=== PATIENT | female | born 1955 | race Caucasian/White ===

== ENCOUNTER 2023-02-10 12:10 | Day surgery (SDC) | payer MEDICARE, SELFPAY ==
--- NOTE | 2023-02-10 12:21 | US_ITS ---
[address] [address] Patient Name: RONIT PARKS MRN: [id number] date: 1955 Sex: F Assigned Patient Location: US Current Patient Location: US Accession/Order Number: [id number] Exam Date: 02/10/2023 12:30 Report Date: 02/10/2023 13:38 At the request of: LAURA VIDALES Procedure: US biopsy thyroid EXAMINATION: US biopsy thyroid HISTORY: Thyroid Nodule COMPARISON: Ultrasound thyroid 07/12/2022 TECHNIQUE: After obtaining informed consent, ultrasound-guided fine needle aspiration was performed in the usual sterile manner. FINDINGS: IMAGING: Ultrasound. BIOPSY NEEDLE: 25-gauge; 3 separate passes LOCATION: Left lobe 1.2 x 1.0 x 0.7 cm hypoechoic heterogeneous nodule. SPECIMEN TYPE: Cellular tissue. LOCAL ANESTHETIC: Buffered Xylocaine. COMPLICATIONS: None. LABORATORY: Prepared slide smears and washings for cell block evaluation. OTHER: Negative. PATHOLOGY: Pending. An addendum will be added when results are available. US/US biopsy thyroid IMPRESSION: 1. Uneventful ultrasound guided fine needle aspiration (FNA). 2. Pathology results are pending. Electronically authenticated by: LORIE OSORIO Date: 02/10/2023 13:38
[2023-02-10 12:30] VITALS: BP 129/69; PULSE 81; O2SAT 100
== END 2023-02-10 13:38 | disposition home or self-care (01) ==
LOC: US 12:13
PROVIDERS: Radiology Diagnostic Radiology; Visit Provider Otolaryngology
DX: E04.1 Nontoxic single thyroid nodule (principal)
CPT/HCPCS: 10005; 88173

== ENCOUNTER 2023-06-23 16:13 | Outpatient (OUT) | payer MEDICARE, SELFPAY ==
--- NOTE | 2023-06-23 16:19 | US_ITS ---
[address] [address] Patient Name: RONIT PARKS MRN: [id number] date: 1955 Sex: F Assigned Patient Location: US Current Patient Location: Accession/Order Number: [id number] Exam Date: 06/23/2023 16:20 Report Date: 06/27/2023 11:03 At the request of: LAURA VIDALES Procedure: US thyroid EXAMINATION: US thyroid HISTORY: Thyroid nodule, E04.1 COMPARISON: Ultrasound thyroid 07/12/2022, ultrasound biopsy thyroid 02/10/2023 FINDINGS: RIGHT LOBE: Stable 9 x 4 x 8 mm TR 4 nodule within superior pole. Lobe size: 3.3 x 1.2 x 1.27 m LEFT LOBE: Stable 12 x 7 x 9 mm TR 4 nodule within superior pole and nearby 3 mm TR 4 nodule. Lobe size: 5.1 x 1.4 x 1.2 cm ISTHMUS: Homogeneous but slightly thickened, 5 mm. Thickness: US/US thyroid IMPRESSION: 1. Stable bilateral TR 4 nodules. Follow-up imaging in one year is recommended. TR4 (moderately suspicious): If > 1.0 cm, follow-up ultrasound in 1, 2, 3, and 5 years. If > 1.5 cm, fine needle aspiration (FNA). Electronically authenticated by: LORIE OSORIO Date: 06/27/2023 11:03
== END 2023-06-23 16:14 | disposition home or self-care (01) ==
LOC: US 16:14
PROVIDERS: Visit Provider Otolaryngology
DX: E04.1 Nontoxic single thyroid nodule (principal)
CPT/HCPCS: 76536